=== PATIENT | male | born 1945 | race Caucasian/White ===

== ENCOUNTER → 2019-01-27 10:29 | Outpatient (CLI) | payer MEDICARE, OTHER ==
[2016-01-01 12:03] VITALS: BMI 27.9
[~2019-01-27 10:29] MED LIST: HYTRIN5 MG PO; PRAVACHOL40 MG PO
--- NOTE | 2019-02-03 08:42 | EC ---
PATIENT:LANDON LINK DATE OF SERVICE: 01/27/19 SEX: M MEDICAL RECORD: [id number] DATE OF : [birth year] LOCATION:D.[facility] AGE OF PATIENT: 73 ADMISSION DATE: 01/27/19 REFERRING PHYSICIAN: INTERPRETING PHYSICIAN: SOL SAUL MD ECHOCARDIOGRAM REPORT ECHO CHARGES 4 ECHO COMPLETE Date: 01/27/19 CLINICAL DIAGNOSIS: H/O CAD/HTN ECHOCARDIOGRAPHIC MEASUREMENTS (adult normal given) AC root (d.<3.7cm) 3.8 cm LV Septum d (<1.2 cm> 1.0 cm Valve Excursion 2.3 cm LV Septum (systole) 1.6 cm Left Atria (s.<4.0cm> 4.1 cm LVPW d(<1.2cm) 1.2 cm RV (d.<2.3cm) 2.5 cm LVPW (sytole) 1.8 cm LV diastole(<5.6CM) 6.5 cm MV E-F(>70mm/sec) cm LV systole 3.9 cm LVOT Diameter 2.1 cm MV exc.(>10mm) cm Est.ejection fraction (50-75%) % DOPPLER: LVIT cm/sec A 100 cm/sec E 131 cm/sec LA cm/sec RVSP 31.0 mmHg LVOT 109 cm/sec AOP1/2T m/s Asc. Ao 300 cm/sec RVOT 91.0 cm/sec RA cm/sec PA 118 cm/sec AV Gradient Peak 36.1 mmHg AV Mean 19.3 mmHg AV Area 1.5 cm MV Gradient Peak 9.8 mmHg MV Mean 4.1 mmHg MV Area cm COMMENTS: OP - HC Tape Recorder Mechanic: Yeni HOUGHOE Interventional Cardiologist: 3 Dr. Carroll TAPE# PACS Pericardial Effusion N DATE OF SERVICE: Adequate 2D, color flow and spectral Doppler, and M-Mode. No LVH. LV internal dimensions are normal. Wall motion is normal. EF is greater than 55%. Aortic valve is calcified with mild restriction of leaflet motion, peak gradient of 36 mmHg putting this probably in the mild to early moderate range. Left atrium is upper limits of normal to mildly dilated at 4.1 cm. Mitral valve shows no prolapse. Mild MR. Right-sided chambers are grossly normal. Trace TR. ECHOCARDIOGRAM REPORT [id number] LANDON LINK TRANSINT:[id number] Voice Confirmation ID: [id number] DOCUMENT ID: [id number] SOL SAUL MD at 0842 CC: [id number] DICTATION DATE: 02/01/19 1230 CONTRACTS MANAGER: 02/01/19 1301 DEP CLI 01/27/19 [place] [id number] [place] [id number]
== END | disposition home or self-care (01) ==
LOC: D.HCCARDIO 10:29
PROVIDERS: ATTEND Internal Medicine Interventional Cardiology
DX: I25.10 Atherosclerotic heart disease of native coronary artery without angina pectoris (principal)

== ENCOUNTER → 2020-01-10 11:44 | Outpatient (CLI) | payer MEDICARE, OTHER ==
[2016-01-01 12:03] VITALS: BMI 27.9
== END | disposition home or self-care (01) ==
LOC: D.LAB 11:44
PROVIDERS: ATTEND Internal Medicine Pulmonary Disease
DX: Z11.1 Encounter for screening for respiratory tuberculosis (principal)

== ENCOUNTER 2020-10-29 07:10 | Day surgery (SDC) | payer MEDICARE, OTHER ==
[~2020-10-29] VITALS: Ht 180.3 cm; Wt 75.5 kg
--- NOTE | ~2020-10-29 | OP ---
PATIENT NAME: LANDON LINK MEDICAL RECORD: [id number] :47 LOCATION:D.[facility] ADMISSION DATE: SURGEON: SOL SAUL MD DATE OF OPERATION: 10/29/2020 PROCEDURE PERFORMED: Left heart catheterization, selective coronary angiography, IFR wire to the right, and PTCA stenting to the right coronary, right femoral artery approach. CATHETERS: A 5-Mauritanian sheath, 5/4 left and right Thelma, 5/4 pig. The procedure was well tolerated. Proceeded immediately to stenting to the right coronary. FINDINGS: Left ventriculography in 30 degree BARRY view; normal wall motion, normal systolic function. CORONARY ANATOMY: Left main: Left main is free of disease. LAD: Free of disease in the diagonal system. Circumflex: Free of disease. Right coronary artery: Previously placed stenting is widely patent; however, there is marked damping upon injection of the diagnostic catheter with a 90% ostial stenosis. This confirmed with IFR wire of less than 0.7. DESCRIPTION OF PROCEDURE: Next, we used a JR4 with sideholes guide catheter and indwelling IFR wire. Stent deployed was a 3.5 x 15 mm Collins drug-eluting stent up to 12 atmospheres for 45 seconds. Final angiography shows excellent resolution of a 90% plus ostial stenosis. No significant residual. PHILIPPE flow was 3 throughout the procedure. The patient did have bradycardia during inflation consistent with a previous syncopal episode. Sheath closed with ExoSeal device. Plavix loaded in the lab. TRANSINT:[id number] Voice Confirmation ID: [id number] DOCUMENT ID: [id number] SOL SAUL MD CC: [id number] DICTATION DATE: 10/29/20928 TRUCK MECHANIC APPRENTICE: 10/30/202329 [facility] 10/29/20 [facility] [address] [place] [id number]
[2020-10-29] MEDS ORDERED: PRAVASTATIN SOD10 MG PO (08:10)
[2020-10-29 08:11] VITALS: BP 128/55; Ht 180.3 cm; Wt 75.5 kg
[2020-10-29] MEDS ORDERED: ZOLOFT25 MG PO (08:11)
[2020-10-29 08:13] LABS: HEMATOCRIT 40.1 % (42.0-54.0); HEMOGLOBIN 13.8 g/dL (13.5-17.5); MCH 32.9 pg (26.0-34.0); MCHC 34.5 g/dL (31.0-37.0); MCV 95.3 fL (80.0-100.0); MEAN PLATELET VOLUME 7.8 fL (7.4-10.4); RDW 13.6 % (11.5-14.5); WBC 8.6 10x3/uL (4.8-10.8)
[2020-10-29 08:14] LABS: ALT (SGPT) 34 U/L (10-68); CALC OSMOLALITY 258 mosm/kg (275-300); CALCIUM 9.1 mg/dL (8.5-10.1); CARBON DIOXIDE 25.4 mmol/L (21.0-32.0); CHLORIDE - SERUM 96 mmol/L (98-107); CHOL - HDL RATIO 2.3 ratio (2.3-4.9); CHOLESTEROL, TOTAL 187 mg/dL (0-200); CREATININE - SERUM 0.9 mg/dL (0.6-1.3); GLUCOSE 119 mg/dL (74-106); HDL CHOLESTEROL 80 mg/dL (32-96); LDL CHOLESTEROL 98 mg/dL (0-100); LDL-HDL RATIO 1.2 ratio (1.5-3.5); POTASSIUM - SERUM 4.1 mmol/L (3.5-5.1); SODIUM 129 mmol/L (136-145); TRIGLYCERIDE 47 mg/dL (30-200); UREA NITROGEN 9 mg/dL (7-18); eGFR NON AFRICAN AMERICAN 88 mL/min (90-120)
[2020-10-29 08:20] LABS: PLATELET COUNT 374 10x3/uL (130-400)
--- NOTE | 2020-10-29 09:38 | NUR ---
PT REC'D TO CATH RECOVERY ROOM 5 VIA [employer]. MONITORS ESTAB. DAUGHTER AT BS. PT INSTRUCTED TO KEEP R LEG STRAIGHT AND HEAD FLAT ON PILLOW. ALARMS ON AND C/L IN REACH.
[2020-10-29] MEDS ORDERED: BAYER CHEWABLE81 MG PO (09:42)
[2020-10-29] MEDS ORDERED: PLAVIX75 MG PO (09:42)
--- NOTE | 2020-10-29 09:49 | NUR ---
PT RESTLESS, C/O "CAN'T LAY FLAT, I SLEEP ON MY SIDE, THIS KILLS MY BACK." ATTEMPTED TO REPOSITION FOR COMFORT. EXPLAINED THE IMPORTANCE OF BED REST, KEEPING R LEG STRAIGHT AND HEAD FLAT ON PILLOW, DAUGHTER AT BS TO HELP REMIND HIM. DR. SAUL NOTIFIED OF PT C/O BACK PAIN, R GROIN SITE SOFT, NO S/S BLEEDING OR HEMATOMA, PULSES PALP, VSS. NEW ORDER REC'D - SEE EMAR.
--- NOTE | 2020-10-29 09:55 | NUR ---
R GROIN SITE SOFT, NO S/S BLEEDING OR HEMATOMA, R LEG/FOOT WARM WITH PALP PULSES, BRISK CAP REFILL. PT MORE COOPERATIVE AT THIS TIME, VSS. ALARMS ON AND C/L IN REACH.
--- NOTE | 2020-10-29 10:26 | NUR ---
PT RESTING QUIETLY AT THIS TIME. R GROIN EXOSEAL SITE SOFT, NO S/S BLEEDING OR HEMATOMA. R LEG/FOOT WARM WITH PALP PULSES AND BRISK CAP REFILL. PERCOCET TAB RETURNED TO PYXIS. PT "STATES I MAY NOT NEED IT, I'LL LET YOU KNOW IF I DO". ALARMS ON AND C/L IN REACH.
--- NOTE | 2020-10-29 10:40 | NUR ---
R GROIN SITE SOFT, NO S/S BLEEDING OR HEMATOMA. PULSES PALP. PT RESTING QUIELTY, VSS. ALARMS ON AND C/L IN REACH.
--- NOTE | 2020-10-29 11:10 | NUR ---
R GROIN SOFT, NO S/S BLEEDING OR HEMATOMA, PULSES PALP.. PT TOLERATING SIPS OF WATER, DENIES OTHER NEEDS. MORE ALERT AND COOPERATIVE AT THIS TIME. ALARMS ON AND C/L IN REACH.
--- NOTE | 2020-10-29 11:40 | NUR ---
R GROIN EXOSEAL SITE SOFT, NO S/S BLEEDING OR HEMATOMA. R LEG/FOOT WARM WITH PALP PULSES AND BRISK CAP REFILL. VSS. PT TOLERATING SIPS OF WATER. DENIES PAIN OR NEEDS. ALARMS ON AND C/L IN REACH.
--- NOTE | 2020-10-29 12:10 | NUR ---
PT ON C/L, ASKING WHEN HE CAN GO HOME. EXPLAINED POST OP POC, AND IMPORTANCE OF MONITORING R GROIN EXOSEAL SITE, PT VERBALIZES UNDERSTANDING. R GROIN SITE C/D/I, NO S/S BLEEDING OR HEMATOMA. VSS. C/L IN REACH.
--- NOTE | 2020-10-29 12:25 | NUR ---
PT VOIDED 250CC DARK, YELLOW URINE IN URINAL. R GROIN SITE SOFT, NO S/S BLEEDING OR HEMATOMA. HOB ELEVATED. PUDDING AND COLA PROVIDED PER PT REQUEST. DAUGHTER AT BS. ALARMS ON AND C/L IN REACH.
--- NOTE | 2020-10-29 12:45 | NUR ---
PT TOLERATED EATING/DRINKING, NO N/V. PT DENIES PAIN OR NEEDS. R GROIN SITE SOFT, C/D/I, NO S/S BLEEDING. ALARMS ON AND C/L IN REACH.
--- NOTE | 2020-10-29 13:10 | NUR ---
R GROIN SITE SOFT, NO S/S BLEEDING OR HEMATOMA. R LEG/FOOT WARM WITH PALP PULSES AND BRISK CAP REFILL. PIV D/C'D INTACT, DSG APPLIED.
--- NOTE | 2020-10-29 13:18 | NUR ---
ALL DISCHARGE INSTRUCTIONS REVIEWED WITH PT AND HIS DAUGHTER, INCLUDING RESTRICTIONS, MEDS (INCLUDING NEW PLAVIX PRESCRIPTION AND ASPIRIN) AND F/U APPT. BOTH VERBALIZE UNDERSTANDING. PT ALLOWED UP TO GET DRESSED AND GO TO [facility] INDEPENDENTLY.
--- NOTE | 2020-10-29 13:26 | NUR ---
PT D/C'D VIA WC TO PRIVATE VEHICLE WITH ALL PAPERWORK AND BELONGINGS.
[2020-10-29 13:30] LABS: BASOPHILS 1 % (0-2); EOSINOPHILS 1 % (0-7); LYMPHOCYTES 26 % (15-50); MONOCYTES 15 % (2-11); NEUTROPHILS 57 % (40-80); PLATELET ESTIMATE NORMAL
== END 2020-10-29 13:26 | disposition home or self-care (01) ==
LOC: D.CATH 07:10
PROVIDERS: ATTEND Internal Medicine Interventional Cardiology
DX: I25.119 Atherosclerotic heart disease of native coronary artery with unspecified angina pectoris (principal); R42 Dizziness and giddiness
CPT/HCPCS: 93458; 93571; C9600